=== PATIENT | male | born 1965 | race Caucasian/White ===

== ENCOUNTER → 2017-04-07 19:07 | Outpatient (CLI) | payer MEDICARE, MEDICAID, SELFPAY | PROVIDERS: Family Provider Internal Medicine; PCP Internal Medicine; Visit Provider Otolaryngology | DX: J02.9 Acute pharyngitis, unspecified (principal) | CPT/HCPCS: 87070 ==

== ENCOUNTER → 2017-10-20 13:18 | Outpatient (CLI) | payer MEDICARE, SELFPAY ==
[2017-10-20 15:01] LABS: Absolute Lymphocyte Count 2.74 X10^3/ul (0.83-4.51); Basophil# 0.05 X10^3/uL; Basophil% 0.6 % (0-1); Eosinophil# 0.35 X10^3/uL; Eosinophils% 4.1 % (0-5); Hematocrit 43.1 % (40-54); Hemoglobin 13.6 g/dl (13.0-16.5); Lymphocyte # 2.74 X10^3/ul (4.0); Lymphocyte % 31.9 % (19-41); Mean Corp Hgb Conc 31.6 g/gl (32-36); Mean Corpuscular Volume 85.5 fL (80-94); Mean Platelet Vol. 10.6 fl (6.2-12.0); Monocyte# 0.44 X10^3/uL; Monocyte% 5.1 % (0-10); Neutrophil # 4.96 X10^3/uL (2.7-7.7); Neutrophil % 57.7 % (47-70); Platelet Count 350 K/mm3 (150-450); RBC Distribution Width CV 13.8 % (11.6-14.6); RBC Distribution Width SD 42.9 fl (35.1-43.9); Red Blood Count 5.04 M/mm3 (4.6-6.2); White Blood Count 8.6 K/mm3 (4.4-11.0)
[2017-10-20 15:02] LABS: POSITIVE COUNT NO; POSITIVE DIFFERENTIAL NO; POSITIVE MORPHOLOGY NO
[2017-10-20 15:20] LABS: ALB/GLOB Ratio 0.8 RATIO (0.9-2.4); AST(SGOT) 21 U/L (15-37); Alanine Aminotransfer ALT/SGPT 43 U/L (16-61); Albumin, Serum 3.4 g/dL (3.2-5.0); Alkaline Phosphatase 170 U/L (45-117); Anion Gap 13 (5-15); BUN 9 mg/dL (7-18); BUN/Creat Ratio 8.4 RATIO (10-20); Calcium,Total 8.9 mg/dL (8.5-10.1); Chloride 106 mmol/L (98-107); Creatinine, Serum 1.07 mg/dL (0.70-1.30); EST Glomerular Filtration Rate 78 mL/min (>60); Est Glom Filt Rate - Afr Amer 94 mL/min (>60); Globulin 4.5 g/dL (2.2-4.2); Glucose 132 mg/dL (74-106); Potassium 3.6 mmol/L (3.5-5.1); Protein, Total 7.9 g/dL (6.4-8.2); Sodium Level 143 mmol/L (136-145)
== END ==
PROVIDERS: Family Provider Internal Medicine; PCP Internal Medicine; Visit Provider Internal Medicine
DX: R06.02 Shortness of breath (principal); R53.83 Other fatigue
CPT/HCPCS: 36415; 80053; 85025

== ENCOUNTER → 2017-10-24 12:30 | Outpatient (CLI) | payer MEDICARE, SELFPAY ==
[2017-10-24 14:01] LABS: Hemoglobin A1c 5.4 % (4.2-6.3)
[2017-10-24 14:02] LABS: Vitamin D,25 Hydroxy 24.8 ng/mL (29.95-100.01)
== END ==
PROVIDERS: Family Provider Internal Medicine; PCP Internal Medicine; Visit Provider Internal Medicine
DX: R06.02 Shortness of breath (principal); K76.89 Other specified diseases of liver; R73.9 Hyperglycemia, unspecified; R53.83 Other fatigue
CPT/HCPCS: 36415; 82306; 83036; 93306; Q9957; A4216; C8929

== ENCOUNTER 2020-01-16 11:52 | Emergency (ER) | payer MEDICARE, MEDICAID, SELFPAY ==
[2020-01-16 11:53] VITALS: BP 138/88; PULSE 90; RESP 18; TEMP 36.6; O2SAT 99; BMI 37.5
--- NOTE | 2020-01-16 12:12 | RAD_ITS ---
STUDY: X-RAY CHEST REASON FOR EXAM: Male, 54 years old. Cough, SOB x several days -- in hospital for COVID, but pt''s COVID test was negative TECHNIQUE: Single AP portable view of the chest. COMPARISON: None. FINDINGS: The lungs are underexpanded. There is elevation of the right hemidiaphragm. Normal size heart. Normal mediastinum and deb. Normal visualized pulmonary arteries. Normal visualized aortic arch and descending thoracic aorta. There are diffuse degenerative changes of the visualized thoracic spine. Normal visualized ribs, clavicles, and shoulders. There is no demonstrated abnormality of the visualized soft tissue structures of the upper abdomen. RAD/Chest 1 View (Portable) IMPRESSION: Minimal atelectasis. No visualized focal consolidation. Electronically Signed: Arabella Quintana MD at 13:41 EST Tel , Service support ,
--- NOTE | 2020-01-16 12:16 | ED.DCSUM_ITS ---
History of Present Illness Informant: Patient Onset: Weeks - 2 weeks Context: Gradual Onset Timing: Continuous Quality: dyspnea Location: chest Current Severity: Mild Maximum Severity: Severe Worsened by: - - coughing Relieved by: - - rest Associated Symptoms: Nasal Congestion, Shortness of Breath, Productive Cough. Negative for: Headache, Sinus Pressure, Myalgias, Nausea, Vomiting, Diarrhea, Chest Pain, Nonproductive cough, Hemoptysis Narrative: 54-year-old male history of chronic pain and sleep apnea presents to the emergency department with 2 weeks of productive cough with sputum and shortness of breath with exertion. No fevers or chest pain. No hemoptysis. Is not lightheaded or dizzy. No nausea vomiting or diarrhea. No leg pain or swelling no recent travel or surgery or history of DVT or PE. He denies history of COPD or asthma. currently admitted for pulmonary embolism. He tells me she was Covid negative. Prior similar symptoms: Yes Recent Illness/Hospitalization: No <Nima Lynne - Last Filed: 01/16/20 12:16> <Lobo Monaco - Last Filed: 01/16/20 14:01> Chief Complaint: Shortness of Breath Past Medical History Prior records reviewed: Yes Past Medical History: - - Sleep apnea chronic pain syndrome Surgical History: - - Surgery for penile implant Lives: With Family Smoking Status: Never smoker Alcohol: None Drugs: None <Nima Lynne - Last Filed: 01/16/20 12:16> <Lobo Monaco - Last Filed: 01/16/20 14:01> - Allergies and Home Meds Allergies/Adverse Reactions: Allergies Penicillins [PCN] Allergy (Verified 01/16/20 11:55) Other CONVULSIONS Tetanus Vaccines and Toxoid [Tetanus Vaccines & Toxoid] Allergy (Verified 01/16/20 11:55) Other CONVULSIONS Primary Care Physician: Leia Ledesma MD [STAFF PHYSICIAN] - Review of Systems All systems negative except as indicated General: Denies: Chills, Fever, Malaise, Sweats Eyes: Denies: Visual changes - bilaterally, Diplopia ENT: Reports: Rhinorrhea. Denies: Sore throat Cardiovascular: Denies: Chest pain, Palpitations Respiratory: Reports: Dyspnea, Cough, Dyspnea on exertion. Denies: Orthopnea, Paroxysmal nocturnal dyspnea Gastrointestinal: Denies: Abdominal pain, Nausea, Vomiting, Diarrhea, Melena, Hematochezia Genitourinary: Denies: Dysuria, Hematuria, Frequency Musculoskeletal: Denies: Back pain, Swelling, Extremity Pain Skin: Denies: Rash, Wounds Neurological: Denies: Headache, Weakness, Numbness <Nima Lynne - Last Filed: 01/16/20 12:16> Physical Exam Vital Signs/Narrative: Vital Signs Temp Pulse Resp BP Pulse Ox 01/16/20 11:53 97.9 F 90 18 138/88 H 99 Inital Vital Signs reviewed: Yes General: Well nourished, Well developed Head: Normocephalic, Atraumatic Eyes: Perrl, EOMI Ears: Normal external canal, TM's clear Nose: Normal Inspection, No Rhinorrhea Mouth/Throat: Normal Inspection, No Posterior Erythema Neck: Supple, Nontender Cardiovascular: Regular rate, Regular rhythm, No murmurs Respiratory: No distress, Chest nontender, Wheezing. Negative for: Diminished, Decreased Air Movement, Retractions Abdomen: Soft, Nontender, Nondistended, Normal bowel sounds Back: Nontender, Normal Inspection Extremities: Nontender, No edema Skin: Normal color, No rash Neurological: Alert, Oriented x3, Cranial nerves II-XII grossly intact, Normal Strength, Normal Sensation Psychological: Normal affect <Nima Lynne - Last Filed: 01/16/20 12:16> Vital Signs/Narrative: Vital Signs Temp Pulse Resp BP Pulse Ox 01/16/20 13:27 16 01/16/20 11:53 97.9 F 90 18 138/88 H 99 <Lobo Monaco - Last Filed: 01/16/20 14:01> Diagnostic/Tx/Re-eval Impressions Chest X-Ray 01/16/20 12:12 IMPRESSION: Minimal atelectasis. No visualized focal consolidation. Electronically Signed: Arabella Quintana MD at 13:41 EST Tel , Service support , 01/16/20 12:12 Chest 1 View (Portable) [RAD] Stat - Medical Decision Making Seen and evaluated independently and in conjunction with physician assistant hvac mechanic. Agree with notes above unless documented otherwise. Patient states he has had cough with wheezing for 2 to 3 days. No fevers, chills, myalgias, known COVID-19 exposure. Patient had pulmonary function test 5 years ago that showed no obvious sign of restrictive or obstructive pulmonary disease. He is ambulatory with mild expiratory wheezes down the hallway without any difficulty and not hypoxic here. His chest x-ray shows no acute pneumonia. He states that he had a scrotal pump placed around 1.5-2 weeks ago at an outside hospital, and was tested for Covid preprocedurally, and was negative. However he did not have any of the respiratory symptoms and. Therefore we repeated his Covid test, we advised him to quarantine, prescribe him albuterol for his ne bulizer machine at home, supportive care advised, we discussed reasons to return he is comfortable with that plan. <Lobo Monaco - Last Filed: 01/16/20 14:01> ED Disposition <Nima Lynne - Last Filed: 01/16/20 12:16> <Lobo Monaco - Last Filed: 01/16/20 14:01> - Plan for ED Patient: Disposition: Home or Assisted Living Diagnosis: Acute bronchitis Instructions: ED Upper Resp Infec No Abx Tx Prescriptions: Albuterol Aerosols [Ventolin Aerosols] 2.5 mg INHALATION Q4H PRN #25 vial Transmission Status: Pending to [facility] [address] Referrals: Leia Ledesma MD [STAFF PHYSICIAN] - 1 Week if not improving Additional Instructions: You were tested for COVID-19, however it is sent to an offsite laboratory, and will likely take 3-5 days to come back. Reference the pamphlet including with your discharge papers for information on setting up an online portal account to check the results yourself.
--- NOTE | 2020-01-16 12:40 | EKG12_ITS ---
Test Reason : SOB Blood Pressure : / mmHG Vent. Rate : 092 BPM Atrial Rate : 092 BPM P-R Int : 168 ms QRS Dur : 110 ms QT Int : 364 ms P-R-T Axes : 047 -51 014 degrees QTc Int : 450 ms Normal sinus rhythm Left anterior fascicular block Abnormal ECG Confirmed by INGA MALIN, SAL ([id number]), marketing editor TOYA HAHN ([id number]) on 01/17/2020 2:03:05 PM Referred By: OLVIN Confirmed By:SAL XIONG MD
--- NOTE | 2020-01-16 12:43 | NURSING ---
NO OLD EKGS
[2020-01-16] MEDS: Ipratropium/Albuterol Sulfate 3 ML AMPUL.NEB INHALATION (13:26)
[2020-01-16 13:27] VITALS: RESP 16
[2020-01-16 14:18] VITALS: BP 140/74; PULSE 74; RESP 18; TEMP 36.6; O2SAT 100
== END 2020-01-16 14:21 | disposition home or self-care (01) ==
PROVIDERS: Emergency Provider Physician Assistant Medical; PCP Nurse Practitioner Primary Care
DX: J20.9 Acute bronchitis, unspecified (principal)
CPT/HCPCS: 71045; 87635; 93005; 94640; 99282; U0003

== ENCOUNTER 2020-05-25 09:40 | Outpatient (RCR) | payer MEDICARE, MEDICAID, SELFPAY ==
[2020-05-25] MEDS: COVID-19 VACC, MRNA(PFIZER)/PF 30 MCG/0.3 ML SYRINGE IM (16:07)
[2020-06-15] MEDS: COVID-19 VACC, MRNA(PFIZER)/PF 30 MCG/0.3 ML SYRINGE IM (15:28)
== END 2020-05-25 23:59 ==
LOC: IMMUN 09:40
PROVIDERS: PCP Nurse Practitioner Primary Care; Visit Provider Family Medicine
DX: Z23 Encounter for immunization (principal)
CPT/HCPCS: 0001A; 0002A; 91300

== ENCOUNTER 2022-04-30 13:22 | Emergency (ER) | payer MEDICARE, MEDICAID, SELFPAY ==
[2022-04-30 13:22] VITALS: BP 156/99; PULSE 98; RESP 16; TEMP 36.4; O2SAT 100; BMI 40.0
--- NOTE | 2022-04-30 14:16 | VDLE_ITS ---
Reason For Study: LEG SWELLING RIGHT LEFT CFV is compressible, spontaneous, phasic, GSV is normal. competent and demonstrates normal CFV is compressible, spontaneous, phasic, augmentation. competent, and demonstrates normal Procedure augmentation. This is a venous duplex using B-mode, color FV is compressible, spontaneous, phasic, flow and spectral Doppler. competent and demonstrates normal Exam performed portable in ED. augmentation. The exam was diagnostic. POP V is compressible, spontaneous, phasic, A preliminary report was called and/or faxed competent and demonstrates normal to Dr. Oreilly. augmentation. T/P Trunk is compressible. PTV is compressible. LT PerV is compressible. VL/Venous Duplex US, Unilateral Interpretation Summary There is no evidence of left lower extremity deep vein thrombosis. Left great s aphenous vein appears patent and compressible segmentally. Normal flow patterns right common femoral vein Ordering Physician: Deniz Oreilly Referring Physician: Juliano Wallis Performed By: Francis Agudelo RVT
--- NOTE | 2022-04-30 14:25 | EX.ED.DYSGE1 ---
HPI History of Present Illness Chief Complaint: Lower Extremity Injury Narrative Narrative: Patient presents with left leg pain it starts in the buttock but also has some posterior and calf pain. 3 weeks ago he had spinal surgery in [place], he was pain-free for some time and then a few days ago this pain started. He has no back pain currently. No fevers or chills she has no chest pain or shortness of breath, he did talk to his surgeon and was told to come to get a DVT rule out. Patient does not have any urinary retention or incontinence or saddle anesthesia or any weakness. [facility] Medical History (Updated 04/30/22 @ 15:[address] Deniz Oreilly MD) Anxiety Arthritis Back pain Chronic bronchitis Depression Excessive sputum Fibromyalgia Gallstones GERD (gastroesophageal reflux disease) Gout H/O emotional problems Hemorrhoids Hypertension Skin lesion Home Medications tamsulosin 0.4 mg capsule 0.4 mg PO DAILY 08/15/14 [History Last Taken Unknown] aspirin 81 mg chewable tablet 81 mg PO DAILY@0800 06/29/16 [History Last Taken Unknown] cholecalciferol (vitamin D3) 125 mcg (5,000 unit) capsule 5,000 unit PO DAILY #90 caps 11/12/17 [Rx Last Taken Unknown] albuterol sulfate 2.5 mg/3 mL (0.083 %) solution for nebulization 2.5 mg (3 mL) inhalation Q4H PRN #25 vials 01/16/20 [Rx Last Taken Unknown] atorvastatin 20 mg tablet 20 mg PO DAILY 01/16/20 [History Last Taken Unknown] buspirone 7.5 mg tablet 7.5 mg PO BID 01/16/20 [History Last Taken Unknown] duloxetine 60 mg capsule,delayed release 60 mg PO DAILY 01/16/20 [History Last Taken Unknown] meloxicam 15 mg tablet 15 mg PO DAILY 01/16/20 [History Last Taken Unknown] methocarbamol 500 mg tablet 500 mg PO BID 01/16/20 [History Last Taken Unknown] mirabegron 50 mg tablet,extended release 24 hr 50 mg PO DAILY 01/16/20 [History Last Taken Unknown] oxycodone-acetaminophen 10 mg-325 mg tablet 1 tab PO TID 01/16/20 [History Last Taken Unknown] Allergy/AdvReac Type Severity Reaction Status Date / Time Penicillins [PCN] Allergy Other Verified 04/30/22 13:25 Tetanus Vaccines and Toxoid Allergy Other Verified 04/30/22 13:25 [Tetanus Vaccines & Toxoid] Family History Other Alcoholism Arthritis Asthma Colitis Emphysema of lung Heart disease Myocardial infarction Psychiatric care Respiratory disease Surgical History History of nasal surgery Social History Smoking Status: Never smoker alcohol intake: never substance use type: does not use additional social history: DOES USE ASPIRIN DOES NOT USE IBUPROFEN ROS ROS ED ROS Narrative Past medical history: Reviewed Medications: Reviewed Social history: Noncontributory Review of systems: All systems negative except as indicated General: No fever Eyes: No visual changes Cardiovascular: No chest pain Respiratory: No shortness of breath or cough Gastrointestinal: No abdominal pain, nausea vomiting or diarrhea Genitourinary: No dysuria Musculoskeletal: Leg pain and buttock pain as in HPI Skin: No rash Neurological: No memory loss, confusion or any focal weakness Psych: No recent behavioral changes Hematologic: No easy bleeding or easy bruising EXAM Physical Exam Narrative Exam Narrative: Vitals reviewed General: Patient appears relatively comfortable in the bed. HEENT: Moist mucous membranes Neck: Nontender Cardiovascular normal heart rate Respiratory: No respiratory difficulty speaking in full sentences Abdomen: Soft and nontender, there is no suprapubic mass or pain Back: There is some tenderness over the lumbar region, pain is spinal and paraspinal both. Extremities: Moves all extremities without joint pain or signs of trauma, he does have some calf tenderness on the left but no obvious edema or signs of cellulitis. Neurological: There is normal plantar flexion and dorsiflexion of both feet and great toes. Patellar and Achilles reflexes are normal. Normal strength and sensation. When I did the straight leg test patient did have some pain in that leg however it was not worse with lifting the leg. Skin: No rash Psychiatric: Slightly anxious. Const Vital Signs: 04/30/22 13:22 Temperature 97.5 F L Temperature Source Temporal Pulse Rate 98 Respiratory Rate 16 Blood Pressure 156/99 H Blood Pressure Mean 118 Pulse Ox 100 Oxygen Delivery Method Room Air MDM MDM MDM Narrative Medical decision making narrative: Patient has a normal DVT study. At this time he does have some possible radicular symptoms, however there are no red flags that would mandate an emergent MRI. I told him to call his surgeon, he may need an outpatient MRI, he understands the red flags of any neurological symptoms other than the radicular pain evolve he needs to return right away he understands that. Otherwise will be discharged in stable condition Discharge Plan Triage Chief Complaint: Lower Extremity Injury ED Provider: Deniz Oreilly Dx/Rx/DC Orders Clinical Impression: Acute leg pain, Acute lumbar radiculopathy Instructions: Anatomy of a Normal Spine, ED Back Care Tips Prescriptions: No Action cholecalciferol (vitamin D3) 5,000 unit capsule 5,000 unit PO DAILY Qty: 90 3RF tamsulosin 0.4 MG capsule 0.4 mg PO DAILY Label Comments: URINE aspirin 81 MG tablet,chewable 81 mg PO DAILY@0800 methocarbamol 500 MG tablet 500 mg PO BID atorvastatin 20 MG tablet 20 mg PO DAILY meloxicam 15 MG tablet 15 mg PO DAILY oxycodone-acetaminophen 1 EACH tablet 1 tab PO TID buspirone 7.5 MG tablet 7.5 mg PO BID duloxetine 60 MG capsule 60 mg PO DAILY mirabegron 50 MG tablet extended release 24 hr 50 mg PO DAILY albuterol sulfate 2.5 MG/3 ML solution for nebulization 2.5 mg INHALATION Q4H PRN Qty: 25 0RF Rx Instructions: Use q4 hours and PRN for wheezing Primary Care Provider: Juliano Wallis Referrals: Juliano Wallis MD [Primary Care Provider] - 3-5 Days Disposition Disposition: Home, Self Care
[2022-04-30 15:41] VITALS: BP 148/91; PULSE 88; RESP 16; O2SAT 96
== END 2022-04-30 15:43 | disposition home or self-care (01) ==
LOC: ED 15:22
PROVIDERS: Emergency Provider Emergency Medicine; PCP Family Medicine; Visit Provider Emergency Medicine
DX: M54.16 Radiculopathy, lumbar region (principal); I10 Essential (primary) hypertension; M79.89 Other specified soft tissue disorders; M79.606 Pain in leg, unspecified
CPT/HCPCS: 93971; 99282

== ENCOUNTER 2022-05-13 13:26 | Emergency (ER) | payer MEDICARE, MEDICAID, SELFPAY ==
[2022-05-13 13:26] VITALS: BP 138/88; PULSE 98; RESP 14; TEMP 36.4; O2SAT 98; BMI 37.5
--- NOTE | 2022-05-13 14:12 | VDLE_ITS ---
Reason For Study: Pain Procedure LEFT This is a venous duplex using B-mode, color GSV is normal. flow and spectral Doppler. CFV is compressible, spontaneous, phasic, Exam performed portable in ED. competent, and demonstrates normal A preliminary report was called and/or faxed augmentation. to Dr. Horne. FV is compressible, spontaneous, phasic, competent and demonstrates normal augmentation. POP V is compressible, spontaneous, phasic, competent and demonstrates normal augmentation. T/P Trunk is compressible. PTV is compressible. LT PerV is compressible. VL/Venous Duplex US, Unilateral Interpretation Summary There is no evidence of left lower extremity deep vein thrombosis. Left great s aphenous vein appears patent and compressible segmentally. Ordering Physician: Espinoza Horne Referring Physician: Juliano Wallis Performed By: Shannan Urbina RVT
--- NOTE | 2022-05-13 14:28 | EX.ED.DYSGE1 ---
HPI History of Present Illness Chief Complaint: Lower Extremity Injury Informant: patient Narrative Narrative: Sent in from his PCP for another ultrasound of left lower extremity. He was seen 2 weeks ago for pain down the back of his leg To his ankle along with back pain. He is status post lumbar discectomy things L4-L5 region [facility] by [facility] surgeon for he does not know the name at this time. He had symptoms starting early March. Same radicular symptoms. He was referred to the surgeon with surgery being performed April 10. He states he was symptom-free after surgery. He followed up from his surgery was doing well. He is currently on Percocet tens along with muscle relaxer. He has finished Medrol Dosepak a week ago with no relief. Since 2 weeks he did not call his surgeon or his doctor. He called them today and was referred back here. He denies any loss of bowel bladder control. He states he has another appointment with his surgeon from a follow-up. Prior similar symptoms: Yes PFSH [facility] Medical History (Updated 05/13/22 @ 14:[address] Espinoza Horne DO) Anxiety Arthritis Back pain Chronic bronchitis Depression Excessive sputum Fibromyalgia Gallstones GERD (gastroesophageal reflux disease) Gout H/O emotional problems Hemorrhoids Hypertension Skin lesion Home Medications tamsulosin 0.4 mg capsule 0.4 mg PO DAILY 08/15/14 [History Last Taken Unknown] aspirin 81 mg chewable tablet 81 mg PO DAILY@0800 06/29/16 [History Last Taken Unknown] cholecalciferol (vitamin D3) 125 mcg (5,000 unit) capsule 5,000 unit PO DAILY #90 caps 11/12/17 [Rx Last Taken Unknown] albuterol sulfate 2.5 mg/3 mL (0.083 %) solution for nebulization 2.5 mg (3 mL) inhalation Q4H PRN #25 vials 01/16/20 [Rx Last Taken Unknown] atorvastatin 20 mg tablet 20 mg PO DAILY 01/16/20 [History Last Taken Unknown] buspirone 7.5 mg tablet 7.5 mg PO BID 01/16/20 [History Last Taken Unknown] duloxetine 60 mg capsule,delayed release 60 mg PO DAILY 01/16/20 [History Last Taken Unknown] meloxicam 15 mg tablet 15 mg PO DAILY 01/16/20 [History Last Taken Unknown] methocarbamol 500 mg tablet 500 mg PO BID 01/16/20 [History Last Taken Unknown] mirabegron 50 mg tablet,extended release 24 hr 50 mg PO DAILY 01/16/20 [History Last Taken Unknown] oxycodone-acetaminophen 10 mg-325 mg tablet 1 tab PO TID 01/16/20 [History Last Taken Unknown] diazepam 5 mg tablet 5 mg PO Q8 PRN Muscle Spasm #20 tabs 05/13/22 [Rx Last Taken Unknown] Allergy/AdvReac Type Severity Reaction Status Date / Time Penicillins [PCN] Allergy Other Verified 05/13/22 13:29 Tetanus Vaccines and Toxoid Allergy Other Verified 05/13/22 13:29 [Tetanus Vaccines & Toxoid] Family History Other Alcoholism Arthritis Asthma Colitis Emphysema of lung Heart disease Myocardial infarction Psychiatric care Respiratory disease Surgical History History of nasal surgery Social History Smoking Status: Never smoker alcohol intake: never substance use type: does not use additional social history: DOES USE ASPIRIN DOES NOT USE IBUPROFEN ROS ROS ED Constitutional Constitutional ED: Denies chills, fever(s) or sweats Eyes Eyes: Denies change in vision ENT ENT ED: Denies dysphagia or sore throat Cardiovascular Cardiovascular: Denies chest pain, leg edema, palpitations or racing heartbeat Respiratory/Chest Respiratory/Chest: Denies cough, dyspnea or dyspnea on exertion Gastrointestinal Gastrointestinal: Denies abdominal pain, diarrhea, nausea or vomiting Genitourinary Genitourinary ED: Denies dysuria, hematuria or urinary frequency Musculoskeletal Musculoskeletal: Reports back pain and extremity pain; Denies neck pain Integumentary Denies rash or wounds Neurologic Neurologic: Denies headache(s), paresthesias or weakness EXAM Physical Exam Const Vital Signs: 05/13/22 13:26 Temperature 97.6 F L Temperature Source Temporal Pulse Rate 98 Respiratory Rate 14 Blood Pressure 138/88 H Blood Pressure Mean 104 Pulse Ox 98 Oxygen Delivery Method Room Air Positive well nourished and well developed General Appearance ED: well developed and NAD HEENT Reports moist mucous membranes normocephalic and atraumatic Eyes PERRL, EOMs intact bilaterally and conjunctivae normal General Eye ED: Yes normal appearance of both eyes Neck no lymphadenopathy and supple General: Negative for tenderness Chest Wall Chest: Negative for tenderness Resp normal respiratory effort and normal air movement Effort and Inspection: symmetric chest movement; Negative for respiratory distress Cardio regular rate, regular rhythm and no murmurs Peripheral Pulses: pulses 2+ throughout GI normal to inspection, nondistended, normoactive bowel sounds and non-tender Palpation: Negative for guarding or rebound tenderness present Back/Spine no CVA tenderness Back/Spine Narrative: Tender palpation left lower lumbar left, straight leg test negative is 1+ patellar reflex. Extremity Extremity Narrative: Left lower extremity there is tightness of the hamstring muscles. There is no asymmetric swelling. Distal pulses were intact. General Extremety ED: Negative for edema or tenderness General Extremity: Negative for edema Neuro oriented x3 and no sensory deficits noted Sensorium / Orientation: awake and alert Skin no rashes or lesions noted and no wounds MDM MDM MDM Narrative Medical decision making narrative: Interventions / MDM: Differential diagnosis: Lumbar radiculopathy, disc hernia, sciatica Diagnosis considered but do not suspect: No cauda equina symptoms My EKG interpretation: N/A Imaging independently reviewed and interpreted by myself: N/A External documents reviewed: N/A Test considered but not ordered:N/A ED course: Patient with no cauda equina symptoms as history similar to his disc hernia with radicular symptoms. Ultrasound studies left leg was negative. He is reassured. He would like something more for relief. Discussed changing his muscle relaxer for which she agreed he will hold this and will be placed on Valium. He will call his surgeon for outpatient follow-up for further work-up and image studies as warranted by them. No indication for emergent MRI today. All questions were answered. Re-evaluation: stable Disposition discussed with patient/family/significant other: Patient Case discussed with consulting clinician: N/A Radiography Diagnostic Testing: Clinical Impression(s) from Imaging Studies Venous Doppler Study 05/13/22 14:12 Interpretation Summary There is no evidence of left lower extremity deep vein thrombosis. Left great saphenous vein appears patent and compressible segmentally. Ordering Physician: Espinoza Horne Referring Physician: Juliano Wallis Performed By: Shannan Urbina RVT Discharge Plan Triage Chief Complaint: Lower Extremity Injury ED Provider: Espinoza Horne Dx/Rx/DC Orders Clinical Impression: Acute lumbar radiculopathy, Muscle tightness, History of herniated intervertebral disc Instructions: ED Back Pain (Acute or Chronic) Prescriptions: New diazepam [diazepam] 5 mg tablet 5 mg PO Q8 PRN (Reason: Muscle Spasm) Qty: 20 0RF No Action cholecalciferol (vitamin D3) 5,000 unit capsule 5,000 unit PO DAILY Qty: 90 3RF tamsulosin 0.4 MG capsule 0.4 mg PO DAILY Label Comments: URINE aspirin 81 MG tablet,chewable 81 mg PO DAILY@0800 methocarbamol 500 MG tablet 500 mg PO BID atorvastatin 20 MG tablet 20 mg PO DAILY meloxicam 15 MG tablet 15 mg PO DAILY oxycodone-acetaminophen 1 EACH tablet 1 tab PO TID buspirone 7.5 MG tablet 7.5 mg PO BID duloxetine 60 MG capsule 60 mg PO DAILY mirabegron 50 MG tablet extended release 24 hr 50 mg PO DAILY albuterol sulfate 2.5 MG/3 ML solution for nebulization 2.5 mg INHALATION Q4H PRN Qty: 25 0RF Rx Instructions: Use q4 hours and PRN for wheezing Primary Care Provider: Juliano Wallis Referrals: Juliano Wallis MD [Primary Care Provider] - 3-5 Days Activity Restrictions/Additional Instructions: Hold your methocarbamol, take Valium as prescribed. Your DVT study is negative again. Call your surgeon for outpatient follow-up for imagings as warranted by them. He would likely any other MRI, no indication for emergent 1 today. Disposition Disposition: Home, Self Care Discharge Date/Time: 05/13/22 14:50
== END 2022-05-13 14:50 | disposition home or self-care (01) ==
LOC: ED 14:48
PROVIDERS: Emergency Provider Emergency Medicine; PCP Family Medicine; Visit Provider Emergency Medicine
DX: M54.16 Radiculopathy, lumbar region (principal); M79.605 Pain in left leg; I10 Essential (primary) hypertension; Z79.82 Long term (current) use of aspirin; Z98.890 Other specified postprocedural states
CPT/HCPCS: 93971; 99282; A4216

== ENCOUNTER 2024-08-27 12:48 | Emergency (ER) | payer MEDICARE, MEDICAID, SELFPAY ==
[2024-08-27 12:49] VITALS: BP 114/74; PULSE 102; RESP 17; TEMP 36.2; O2SAT 95; BMI 42.0
== END 2024-08-27 13:54 | disposition left against medical advice (07) ==
LOC: ED 14:02
PROVIDERS: PCP Family Medicine
DX: Z53.21 Procedure and treatment not carried out due to patient leaving prior to being seen by health care provider (principal)